=== PATIENT | female | born 1995 ===

== ENCOUNTER 2018-12-22 17:40 | Inpatient (IN) | payer SELFPAY ==
[2018-12-22] MEDS ORDERED: EPINEPHrine 1 MG/10 ML Abboject SYRINGE ONE (17:49)
[2018-12-22] MEDS ORDERED: Rocuronium Bromide 10 MG/ML (10ML VIAL) ONE (17:49)
[2018-12-22 18:05] LABS: Hemoglobin 12.1 g/dL (12.0-16.0); Mean Corpuscular HGB CONC 32.9 g/dL (32.0-36.0); Mean Corpuscular Hemoglobin 27.6 pg (27.0-31.0); Mean Platelet Volume 8.6 fL (7.4-10.4); Platelet Count 468 thou/uL (130-400); RBC Distribution Width 13.2 % (11.5-14.5); White Blood Cell (WBC) Count 22.3 thou/uL (4.8-10.8)
[2018-12-22] MEDS ORDERED: fentaNYL Citrate/PF 2,000 MCG in Sodium Chloride 0.9% 60 ML IV SCH ×2 (18:14→20:59)
[2018-12-22 18:22] LABS: Band 5 % (5-11); Lymphocytes 19 % (21-51); MDiff Complete? YES; Monocytes 5 % (0-10); Myelocyte 1 % (0-0); Neutrophil 69 % (42-75); Platelet Morphology Comment Appears Increased; RBC Morphology Normal; Reactive Lymphocytes 1 % (0-10)
[2018-12-22 18:25] LABS: ALT (SGPT) 22 U/L (8-55); AST (SGOT) 16 U/L (5-34); Albumin 4.6 g/dL (3.5-5.0); Alkaline Phosphatase 81 U/L (40-110); Anion Gap 19 mmol/L (10-20); BUN (Urea Nitrogen) 15 mg/dL (7.0-18.7); Bilirubin, Total 0.2 mg/dL (0.2-1.2); Calc. Creatinine Clearance 0 mL/min (70-130); Calcium 9.5 mg/dL (7.8-10.44); Carbon Dioxide 20 mmol/L (22-29); Chloride 109 mmol/L (98-107); Estimated GFR-MDRD 72; Globulin 3.5 g/dL (2.4-3.5); Glucose 130 mg/dL (70-105); Potassium 3.7 mmol/L (3.5-5.1); Protein, Total 8.1 g/dL (6.0-8.3); Sodium 144 mmol/L (136-145)
[2018-12-22] MEDS ORDERED: Fentanyl 100 MCG/2 ML VIAL ONE (18:30)
--- NOTE | 2018-12-22 18:44 | RAD ---
EXAM: Portable chest INDICATIONS: Postintubation. Dyspnea COMPARISON: None. FINDINGS: Complete opacification of the left chest indicates left lung atelectasis. Right lung is aer ated and clear. ET tube projects into the right mainstem bronchus. An NG tube appears adequately positioned. IMPRESSION: Opacification of the left hemithorax consistent with left lung atelectasis. ET tube proje cts into the right mainstem bronchus.
[2018-12-22 18:45] LABS: Actual Bicarbonate (HCO3a) 15.6 mEq/L (22-28); Analyzer IN Cardio ER; Base Excess (BEa) -9.4 mEq/L (-2.0 to +3.0); Calcium, Ionized 1.14 mmol/L (1.12-1.30); Carboxyhemoglobin (COHb) 0.3 gm% (0.0-3.0); Hemoglobin (Hb) 11.5 g/dL (12.0-16.0); O2 Tension (PaO2) 83.9 mmHg (80.0-100.0); Potassium - ABG Lab 3.12 mmol/L (3.70-5.30); pH, Arterial 7.32 (7.35-7.45)
[2018-12-22] MEDS ORDERED: Propofol 1,000 MG/100 ML VIAL IV ONE (18:47)
[2018-12-22 18:49] LABS: BHCG - Serum Negative (NEGATIVE); Pregs Control Background? CLEAR/WHITE (CLR/WHITE); Pregs Control Bar Appear? YES (CONTROL BAR)
--- NOTE | 2018-12-22 19:04 | RAD ---
EXAM: Portable chest: INDICATIONS: Postintubation. Follow-up. COMPARISON: Film taken at 6:15 PM FINDINGS: Opacification of left hemithorax is again noted. ET tube tip is directed in the right issa tem bronchus and should be retracted. Right lung remains clear. IMPRESSION: No significant change
--- NOTE | 2018-12-22 19:29 | RAD ---
EXAM: Portable chest INDICATIONS: Postintubation COMPARISON: Film taken at 6:15 PM and at 6:33 PM FINDINGS: ET tube has been retracted and is now above sona. Left lung is reexpanded. Hazy residual atelectasis in the left lung. Right lung remains clear. IMPRESSION: Left lung now expanded and aerated.
[2018-12-22] MEDS ORDERED: Acetaminophen 325 MG TAB PO PRN (19:37)
[2018-12-22] MEDS ORDERED: Acetaminophen 650 MG Suppository PR PRN (19:37)
[2018-12-22 19:52] LABS: Puncture Site RBA
--- NOTE | 2018-12-22 20:19 | HP ---
REASON FOR ADMISSION: Acute respiratory failure, anaphylaxis. HISTORY OF PRESENTING ILLNESS: Please note majority of this history is obtained by talking to Dr. Orr, ER physician, the patient's 2 friends at bedside, who witnessed the episode at home and EMS records as the patient is intubated. Her friends apparently were all in the backyard and one of them brought a peanut butter popsicle, not knowing it had peanut butter. They were trying to offer this to the patient. The patient did not touch nor consume this, but she suddenly started to have itching and started to have shortness of breath and was grunting. She took two shots of EpiPen in the backyard and EMS was summoned. EMS gave her another dose of epinephrine, 1 dose of Solu-Medrol, and bagged her all the way to the ER. On arrival here, the patient apparently was not able to maintain airway. Initially , she was talking, but then she slowly slipped into respiratory failure and had to be intubated per Dr. Orr. She witnessed some tongue swelling and some cheek swelling, but it is unclear if she had posterior pharynx/airway involved with edema. She is currently trying to wake up on the ventilator. PAST MEDICAL AND SURGICAL HISTORY: History of idiopathic anaphylaxis. She has been intubated on three prior occasions and the last one was 2 weeks back at [facility]. 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 She was extubated within an hour of intubation there. Has had some vascular surgery on the left leg, left knee surgery. CURRENT MEDICATIONS: The patient is on prednisone 40 mg daily, 200 mg of Benadryl per day in divided doses which she has been taking from last 3 weeks now. ALLERGIES: THE PATIENT HAS A BRACELET SAYING SHE IS ALLERGIC TO KEFLEX, IODINE, LATEX GLOVES, LEVAQUIN, MORPHINE, PANTOPRAZOLE, PEANUT, SHELLFISH, VANCOMYCIN, AND TWO OTHER MEDICATIONS. PERSONAL HISTORY: Does not abuse alcohol or drugs. No history of smoking. FAMILY HISTORY: Cannot be ascertained as the patient is intubated at present. CODE STATUS: Full. Power of privacy attorney is her mom, Ms. Bergeron, number to reach her is [phone]. 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 REVIEW OF SYSTEMS: Cannot be as obtained as the patient is intubated at present. PHYSICAL EXAMINATION: GENERAL: The patient is a 23-year-old female who is currently trying to wake up on the ventilator and is not in any acute distress. VITAL SIGNS: Blood pressure 126/74, pulse 110 per minute, respiratory rate 20 per minute, temperature 98 degrees Fahrenheit, saturating 100% on ventilator. HEENT: Eyes; extraocular muscles intact. Pupils reacting to light. Mildly dilated but reacting. Oral cavity, the patient is orally intubated. She is currently awake and resisting oral examination. NECK: Supple. No elevated JVD. CARDIOVASCULAR: S1 and S2 heard, tachycardic. No murmur. RESPIRATORY: Air entry 1+ bilateral. Scattered rhonchi plus no wheezes. ABDOMEN: Soft, bowel sounds heard. No tenderness, rigidity, or guarding. EXTREMITIES: No peripheral edema or calf tenderness. VASCULAR: Peripheral pulses 1+ bilateral. No ischemic ulcerations or gangrene. CENTRAL NERVOUS SYSTEM: No gross focal deficits noted. The patient is moving all extremities here. No focal deficits noted. PSYCHIATRIC: Cannot be assessed as the patient is intubated at present. LABORATORY DATA: White count of 22, H and H 12 and 36, platelet count 468 with 69% neutrophils, MCV is 84, serum bicarb 20, BUN 15, creatinine 0.9, serum glucose 130. Serum test is negative. Albumin is 4.6. The patient's initial x-ray showed atelectasis with opacification of left hemithorax. Her endotracheal tube was withdrawn, which was initially in right mainstem bronchus and a repeat x-ray shows bilateral good air entry. CLINICAL IMPRESSION AND PLAN: The patient will be admitted to ICU for acute respiratory failure with suspected anaphylaxis which has been recurrent. Today' s episode, it is unclear anything triggered, although popsicle which had peanut butter in it was offered, which the patient did not touch per friends here. She has been intubated nearly 4 times including this one. The last one was 2 weeks back. She will be on Solu-Medrol 40 mg IV q.6 hourly, midazolam drip per Dr. Cardona's advice and I have discussed her findings with him, normal saline 100 mL/h, Pepcid 20 mg IV q.12 hourly. Blood gas will be obtained in an hour to see adequacy. She will be kept n.p.o. The plan is for early extubation in the morning. She is otherwise hemodynamically stable at present. Further information will be obtained when the patient is off ventilator to ascertain the exact nature of her allergies. Code status is full for now. Job ID: [id number] MTDD
[2018-12-22] MEDS ORDERED: Morphine 2 MG/ML SYRINGE SLOW IVP PRN (20:59)
[2018-12-22] MEDS ORDERED: DISCONTINUE PREVIOUS NARCOTIC PAIN MEDICATIONS AND BENZODIAZEPINES FS SCH (20:59)
[2018-12-22] MEDS ORDERED: Propofol BOLUS 1,000 MG/100 ML VIAL IV PRN (20:59)
[2018-12-22] MEDS ORDERED: Fentanyl BOLUS 250 ML IVPB PRN (20:59)
[2018-12-22] MEDS ORDERED: Lorazepam 2 MG/ML VIAL SLOW IVP PRN (20:59)
[2018-12-22] MEDS: Sodium Chloride 0.9% 1,000 ML IV SCH (21:26)
[2018-12-22] MEDS: Famotidine/PF 20 mg/2ml Vial SLOW IVP SCH (21:26)
[2018-12-22 21:49] VITALS: BMI 35.6
[2018-12-22] MEDS: diphenhydrAMINE 50 MG/ML VIAL IVP PRN (22:22)
[2018-12-22] MEDS: Propofol 1,000 MG/100 ML VIAL IV PRN (23:00)
[2018-12-22] MEDS: methylPREDNISolone Sod Succ 40 MG VIAL IVP SCH (23:51)
[2018-12-23] MEDS: Propofol 1,000 MG/100 ML VIAL IV PRN (03:54)
[2018-12-23] MEDS: Sodium Chloride 0.9% 1,000 ML IV SCH ×3 (05:33→21:23)
[2018-12-23] MEDS: diphenhydrAMINE 50 MG/ML VIAL IVP PRN ×4 (05:40→21:54)
[2018-12-23] MEDS: methylPREDNISolone Sod Succ 40 MG VIAL IVP SCH ×4 (05:48→23:25)
[2018-12-23 05:58] LABS: #Monocytes 0.5 thou/uL (0.11-0.59); #Neutrophils 19.8 thou/uL (1.40-6.50); %Basophils 0.2 % (0.0-1.0); %Eosinophils 0.2 % (0.0-10.0); %Lymphocytes 4.6 % (21.0-51.0); %Monocytes 2.5 % (0.0-10.0); %Neutrophils 92.5 % (42.0-75.0); Hemoglobin 10.3 g/dL (12.0-16.0); Mean Corpuscular HGB CONC 32.5 g/dL (32.0-36.0); Mean Corpuscular Hemoglobin 27.9 pg (27.0-31.0); Mean Corpuscular Volume 85.8 fL (78.0-98.0); Mean Platelet Volume 8.3 fL (7.4-10.4); Platelet Count 280 thou/uL (130-400); Red Blood Cell (RBC) Count 3.71 mill/uL (4.20-5.40); White Blood Cell (WBC) Count 21.5 thou/uL (4.8-10.8)
[2018-12-23 06:20] LABS: ALT (SGPT) 17 U/L (8-55); AST (SGOT) 9 U/L (5-34); Albumin 3.6 g/dL (3.5-5.0); Alkaline Phosphatase 59 U/L (40-110); Anion Gap 10 mmol/L (10-20); BUN (Urea Nitrogen) 10 mg/dL (7.0-18.7); Bilirubin, Total 0.3 mg/dL (0.2-1.2); Calc. Creatinine Clearance 223 mL/min (70-130); Calcium 8.4 mg/dL (7.8-10.44); Carbon Dioxide 21 mmol/L (22-29); Chloride 110 mmol/L (98-107); Estimated GFR-MDRD Greater than 90; Globulin 2.4 g/dL (2.4-3.5); Glucose 142 mg/dL (70-105); Potassium 3.3 mmol/L (3.5-5.1); Sodium 138 mmol/L (136-145)
[2018-12-23] MEDS: Enoxaparin Sodium 40 MG/0.4 ML SYRINGE SC SCH (08:22)
[2018-12-23] MEDS: Famotidine/PF 20 mg/2ml Vial SLOW IVP SCH ×2 (08:22→20:41)
[2018-12-23 08:26] LABS: Actual Bicarbonate (HCO3a) 20.8 mEq/L (22-28); Base Excess (BEa) -2.6 mEq/L (-2.0 to +3.0); CO2 Tension 31.4 mmHg (35.0-45.0); Carboxyhemoglobin (COHb) 0.1 gm% (0.0-3.0); Hemoglobin (Hb) 11.3 g/dL (12.0-16.0); O2 Tension (PaO2) 252.4 mmHg (80.0-100.0); Potassium - ABG Lab 3.44 mmol/L (3.70-5.30); pH, Arterial 7.44 (7.35-7.45)
[2018-12-23 08:27] LABS: Puncture Site RRA
[2018-12-23] MEDS ORDERED: FLU VACC QS2019-20(6MOS UP)/PF 60 MCG/0.5 ML SYRINGE IM ONE (09:00)
--- NOTE | 2018-12-23 15:05 | PDOC.HOSPP ---
- Subjective Subjective: Feels fine. Had a little sensation of heat in her face earlier. Says this can sometimes be a warning sign, but she is good now. - Objective Vital Signs & Weight: Vital Signs (12 hours) Temp Pulse Resp BP Pulse Ox 12/23/18 12:00 98.0 F 98 12/23/18 08:31 96 14 99 12/23/18 08:22 79 119/76 12/23/18 08:00 98.6 F 19 100 12/23/18 06:00 24 H 12/23/18 04:00 98.1 F 20 12/23/18 03:33 62 124/66 Weight Weight 234 lb 9.149 oz Most Recent Monitor Data Heart Rate from ECG 99 NIBP 105/81 NIBP BP-Mean 89 Respiration from ECG 23 SpO2 100 I&O: 12/22/18 12/23/18 12/24/18 06:59 06:59 06:59 Intake Total 981 948.4 Output Total 840 840 Balance 141 108.4 Result Diagrams: 12/23/18 05:35 12/23/18 05:35 Hospitalist ROS - Medication Medications: Active Medications Generic Name Dose Route Start Last Admin Trade Name Freq PRN Reason Stop Dose Admin Diphenhydramine HCl 50 mg 12/22/18 22:03 12/23/18 11:39 Benadryl IVP 50 mg Q6H PRN Administration Itching Enoxaparin Sodium 40 mg 12/23/18 09:00 12/23/18 08:22 Lovenox SC 40 mg 0900 EDMAR Administration Famotidine 20 mg 12/22/18 21:00 12/23/18 08:22 Pepcid SLOW IVP 20 mg Q12HR EDMAR Administration Midazolam HCl 100 mls @ 0 mls/hr 12/22/18 19:45 12/22/18 22:23 Versed IVPB 100 mls INF EDMAR Administration Protocol Titrate Sodium Chloride 1,000 mls @ 100 mls/hr 12/22/18 19:45 12/23/18 05:33 Normal Saline 0.9% IV Not Given .Q10H EDMAR Methylprednisolone Sodium Succinate 40 mg 12/22/18 23:59 12/23/18 11:39 Solu-Medrol IVP 40 mg Q6HR EDMAR Administration Propofol 1,000 mg 12/22/18 20:59 12/23/18 03:54 Diprivan IV 01/21/19 20:59 1,000 mg INF PRN Administration TO ACHIEVE GOAL RASS Protocol Sodium Chloride 10 ml 12/23/18 09:00 12/23/18 08:28 Flush - Normal Saline IVF 10 ml Q12HR EDMAR Administration - Exam General Appearance: NAD, awake alert General - other findings: Obese ENT - other findings: Alopecia areata to scalp. Neck: supple, symmetric, no JVD, no thyromegaly, no lymphadenopathy, no carotid bruit Heart: RRR, no murmur, no gallops, no rubs, normal peripheral pulses Respiratory: CTAB, no wheezes, no rales, no ronchi, normal chest expansion, no tachypnea, normal percussion Gastrointestinal: soft, non-tender, non-distended, normal bowel sounds, no palpable masses, no hepatomegaly, no splenomegaly, no bruit Extremities: no cyanosis, no edema Psychiatric: normal affect, normal behavior, A&O x 3 Hosp A/P (1) Anaphylactic reaction Code(s): T78.2XXA - ANAPHYLACTIC SHOCK, UNSPECIFIED, INITIAL ENCOUNTER Status : Acute (2) Acute respiratory failure with hypoxia Code(s): J96.01 - ACUTE RESPIRATORY FAILURE WITH HYPOXIA Status: Acute - Plan Doing great. Move to floor. Continue IV steroids. Will likely be on a higher dose of po steroids at discharge.
[2018-12-23] MEDS: Ondansetron PF 4 MG/2 ML Vial IVP PRN (19:16)
--- NOTE | 2018-12-23 19:52 | CON ---
DATE OF CONSULTATION: 12/23/2018 HISTORY OF PRESENT ILLNESS: Ms. Sage is a 23-year-old female, who developed shortness of breath. She has a history of this in the past. I am told that she was intubated at [facility] for an hour a few weeks back. I was consulted because of her presence in the Critical Care Unit. Admission history and physical says that she had a peanut butter popsicle that triggered all of this. The emergency room provider's note do not reflect vocal cord edema or an overly swollen tongue that would explain her respiratory complaints. She did not have a long expiratory phase when she was intubated nor she have one today. She apparently gave herself an epinephrine injection prior to the EMS arrival. All this happened on 40 of prednisone and 200 of Benadryl. PAST MEDICAL HISTORY: Otherwise, unremarkable. ALLERGIES: SHE REPORTS MULTIPLE DRUG ALLERGIES, THESE ARE LISTED IN THE COMPUTER CHART. FAMILY HISTORY: Negative for lung disease in early age. SOCIAL HISTORY: She has no history of drug or alcohol use, although there is no drug screen. REVIEW OF SYSTEMS: Otherwise, unremarkable. PHYSICAL EXAMINATION: VITAL SIGNS: She is afebrile. Heart rate is in 80s, respiratory rate is in the teens. GENERAL: She followed commands. Moved all extremities to command. HEENT: Pupils are equal. Sclerae are anicteric. NECK: Supple. LUNGS: Clear. HEART: Regular rhythm. S1 and S2 are normal. ABDOMEN: Soft and nontender. EXTREMITIES: Without clubbing, cyanosis, or edema. She passed a leak test. Now she was a candidate for extubation, this was done successfully this morning. IMPRESSION: Status post intubation for respiratory distress. I cannot imagine that she has an allergic reaction of this severity with 40 of prednisone and 200 Benadryl on board everyday. I have a strong suspicion that she has some sort of conversion disorder. This is supported by the lack of upper airway findings and intubation with her presenting complaints of stridor and a lack of a prolonged expiratory phase once she was mechanically ventilated. There was also no hemodynamic instability. She did have a resting tachycardia, but that can be explained by the EpiPen injection. She will be stable to move out of Critical Care Unit in my opinion. We will sign off once she transfers out of the critical Care Unit. She had completely clear lung gonzalez and an unremarkable exam today. Last set of vital signs heart rate is 88, respiratory rate 16, oximetry 100% on room air, blood pressure 115/ 74. Critical care time is 35 minutes. Job ID: [id number] MTDD
[2018-12-23] MEDS: cycloSPORINE, Modified 25 MG CAP PO SCH (20:37)
[2018-12-23] MEDS: Cyproheptadine 4 MG TAB PO SCH (20:37)
[2018-12-23] MEDS: Famotidine 20 MG TAB PO SCH (20:37)
[2018-12-23] MEDS: Hydroxychloroquine Sulfate 200 MG TAB PO SCH (20:37)
[2018-12-23] MEDS ORDERED: Topiramate 100 MG TAB PO SCH (21:30)
[2018-12-24] MEDS: diphenhydrAMINE 50 MG/ML VIAL IVP PRN ×3 (04:40→17:16)
[2018-12-24] MEDS: methylPREDNISolone Sod Succ 40 MG VIAL IVP SCH (05:46)
[2018-12-24] MEDS: Sodium Chloride 0.9% 1,000 ML IV SCH (06:56)
[2018-12-24] MEDS: Ondansetron PF 4 MG/2 ML Vial IVP PRN ×2 (08:32→15:44)
[2018-12-24] MEDS: Hydroxychloroquine Sulfate 200 MG TAB PO SCH (08:33)
[2018-12-24] MEDS: Famotidine/PF 20 mg/2ml Vial SLOW IVP SCH (08:37)
[2018-12-24] MEDS: Enoxaparin Sodium 40 MG/0.4 ML SYRINGE SC SCH (08:37)
[2018-12-24] MEDS: Famotidine 20 MG TAB PO SCH (08:37)
[2018-12-24] MEDS: cycloSPORINE, Modified 25 MG CAP PO SCH (08:38)
[2018-12-24] MEDS: Cyproheptadine 4 MG TAB PO SCH (08:38)
[2018-12-24] MEDS ORDERED: Folic Acid 1 MG TAB PO SCH (09:00)
[2018-12-24] MEDS ORDERED: Topiramate 100 MG TAB PO SCH ×2 (09:00)
[2018-12-24] MEDS ORDERED: Montelukast Sodium 10 mg Tablet PO SCH (09:00)
--- NOTE | 2018-12-24 09:14 | PDOC.HOSPP ---
- Subjective Encounter Date: 12/24/18 Encounter Time: 09:13 Subjective: Says she had a couple "minor reactions" yesterday. Reports nausea this morning. She was up and around some yesterday. Not yet today. - Objective Vital Signs & Weight: Vital Signs (12 hours) Temp Pulse Resp BP Pulse Ox 12/24/18 07:27 97.9 F 64 16 116/73 99 12/24/18 04:00 98.0 F 80 18 111/73 100 12/24/18 00:00 98.2 F 60 15 106/67 98 Weight Weight 234 lb 9.149 oz Most Recent Monitor Data Heart Rate from ECG 99 NIBP 105/81 NIBP BP-Mean 89 Respiration from ECG 23 SpO2 100 I&O: 12/23/18 12/24/18 12/25/18 06:59 06:59 06:59 Intake Total 981 3218.4 Output Total 840 840 Balance 141 2378.4 Result Diagrams: 12/23/18 05:35 12/23/18 05:35 Hospitalist ROS - Medication Medications: Active Medications Generic Name Dose Route Start Last Admin Trade Name Freq PRN Reason Stop Dose Admin Cyclosporine 75 mg 12/23/18 21:00 12/24/18 08:38 Neoral PO 75 mg BID EDMAR Administration Cyproheptadine HCl 4 mg 12/23/18 21:00 12/24/18 08:38 Periactin PO 4 mg BID EDMAR Administration Diphenhydramine HCl 50 mg 12/22/18 22:03 12/24/18 04:40 Benadryl IVP 50 mg Q6H PRN Administration Itching Enoxaparin Sodium 40 mg 12/23/18 09:00 12/24/18 08:37 Lovenox SC 40 mg 0900 EDMAR Administration Famotidine 10 mg 12/23/18 21:00 12/24/18 08:37 Pepcid PO Not Given BID EDMAR Folic Acid 1 mg 12/24/18 09:00 12/24/18 08:37 Folvite PO 1 mg DAILY EDMAR Administration Hydroxychloroquine Sulfate 200 mg 12/23/18 21:00 12/24/18 08:33 Plaquenil PO 200 mg BID EDMAR Administration Montelukast Sodium 10 mg 12/24/18 09:00 12/24/18 08:33 Singulair PO 10 mg DAILY EDMAR Administration Ondansetron HCl 4 mg 12/22/18 19:37 12/24/18 08:32 Zofran IVP 4 mg Q6H PRN Administration Nausea/Vomiting Sodium Chloride 10 ml 12/23/18 09:00 12/24/18 08:39 Flush - Normal Saline IVF 10 ml Q12HR EDMAR Administration Topiramate 100 mg 12/24/18 09:00 12/24/18 08:33 Topamax PO 100 mg BID EDMAR Administration - Exam General Appearance: NAD, awake alert General - other findings: Obese ENT - other findings: Cheeks are a little erythematous/flushed. Neck: supple, symmetric, no JVD, no thyromegaly, no lymphadenopathy, no carotid bruit Heart: RRR, no murmur, no gallops, no rubs, normal peripheral pulses Respiratory: CTAB, no wheezes, no rales, no ronchi, normal chest expansion, no tachypnea, normal percussion Gastrointestinal: soft, non-tender, non-distended, normal bowel sounds, no palpable masses, no hepatomegaly, no splenomegaly, no bruit Extremities: no edema Musculoskeletal: normal tone Psychiatric: flat affect Hosp A/P (1) Anaphylactic reaction Code(s): T78.2XXA - ANAPHYLACTIC SHOCK, UNSPECIFIED, INITIAL ENCOUNTER Status : Acute (2) Acute respiratory failure with hypoxia Code(s): J96.01 - ACUTE RESPIRATORY FAILURE WITH HYPOXIA Status: Acute - Plan DC the solumedrol PO prednisone at 60 mg. The higher dose of steroids may have contributed to the nausea. PRN Zofran. Pulm. consult noted. Lungs are clear. No signs of active reaction at this time. Suspect she can DC today on oral prednisone, but will monitor the nausea for a little while.
[2018-12-24] MEDS ORDERED: predniSONE 20 MG TAB PO SCH (09:15)
[2018-12-24] MEDS ORDERED: diphenhydrAMINE 50 MG/ML VIAL IVP SCH (13:15)
[2018-12-24 16:52] VITALS: BP 108/75; TEMP 98
--- NOTE | 2018-12-26 17:03 | EKG ---
Test Reason : Blood Pressure : / mmHG Vent. Rate : 108 BPM Atrial Rate : 108 BPM P-R Int : 156 ms QRS Dur : 084 ms QT Int : 340 ms P-R-T Axes : 045 -20 034 degrees QTc Int : 455 ms Sinus tachycardia Minimal voltage criteria for LVH, may be normal variant Nonspecific T wave abnormality Abnormal ECG Confirmed by ALIDA POP DO ([id number]), editorial writer ABNER KERR ([id number]) on 12/26/2018 5:03:36 PM Referred By: Confirmed By:ALIDA POP DO
== END 2018-12-24 19:30 | disposition home or self-care (01) | DRG 208 ==
LOC: ERS 17:40 → EDBD 17:40 → CCU 20:52 → T4-B 12-23 13:34
PROVIDERS: ADMIT Internal Medicine; ATTEND Internal Medicine
PROC: 5A1935Z Respiratory Ventilation, Less than 24 Consecutive Hours (ICD-10-PCS; principal; 2018-12-22)
PROC: 0BH17EZ Insertion of Endotracheal Airway into Trachea, Via Natural or Artificial Opening (ICD-10-PCS; 2018-12-22)
DX: J96.01 Acute respiratory failure with hypoxia (principal); T78.2XXA Anaphylactic shock, unspecified, initial encounter; Z88.8 Allergy status to other drugs, medicaments and biological substances; Z88.6 Allergy status to analgesic agent; Z88.1 Allergy status to other antibiotic agents; Z91.040 Latex allergy status; Z88.5 Allergy status to narcotic agent; Z91.010 Allergy to peanuts; Z91.013 Allergy to seafood
CPT/HCPCS: 36415; 71045; 80053; 82805; 84703; 85025; 93005; 94002; 94003; J0171; J1200; J1650; J2405; J2704; J2920; J3010; J3490; J7512; J7515; S0028